=== PATIENT | female | born 1965 | race Caucasian/White ===

== ENCOUNTER → 2016-08-09 | Day surgery (SDC) | payer OTHER ==
[~2016-08-09] VITALS: Ht 160 cm; Wt 65.8 kg
[~2016-08-09] MED LIST: ADVAIR 250-501 EACH INH; PROAIR HFA8.5 GM INH; SYNTHROID112 MCG PO; XANAX0.5 M1 PO
--- NOTE | 2016-08-09 09:17 | Operative Report ---
Operative/Inv Procedure Report Surgery Date: 08/09/16 Name of Procedure: Right shoulder arthroscopic distal clavicle excision and subacromial decompression Pre-Operative Diagnosis: Right shoulder rotator cuff tendinitis and impingement syndrome Right shoulder acromioclavicular joint arthritis Post-Operative Diagnosis: Same Estimated Blood Loss: scant Surgeon/Compliance Officer: JERMAN TA,SUBHASH Cerda Anesthesia: general endotracheal tube IV Fluids: See anesthesia record Implants: None Drains: None Specimens: None Complications: None Condition: Stable Operative Indication: Patient is a pleasant 50-year-old female who was failed conservative treatment for her right shoulder pain and rotator cuff tendinitis and impingement. MRI was performed which showed tendinosis of the rotator cuff supraspinatus tendon however no full-thickness tear. She is indicated for surgical subacromial decompression and distal clavicle excision. A skilled set of hands was necessary provided by physician cardiovascular physician assistant Sathish Cerda weighted with camera positioning and instrumentation throughout the case. Operative/Procedure Note Note: Once informed consent was obtained and the correct limb was identified the patient brought to operative room placed on table supine position. After initiation of general endotracheal anesthesia patient placed in a beachchair position for right shoulder arthroscopy. Right upper extremity was prepped and draped in usual sterile fashion. To begin the procedure standard posterior arthroscopic portal was made and the arthroscope was introduced into the glenohumeral joint. Diagnostic arthroscopy was carried out. Subscapularis tendon was intact. Biceps tendon and biceps anchor were intact. The anterior and posterior labrum were intact no evidence of any tearing. The glenoid surface and the humeral head surface were devoid of any cartilaginous defects. There was a negative drive-through sign. There are no loose bodies in the inferior pouches. The camera was swung laterally and the supraspinatus and infraspinous tendons were inspected. There were no tears on the articular surface of the rotator cuff tendons. An anterior portal was made lateral to the coracoid process and minimal debridement and shaving was done with a shaving device for any frayed tissue. The biceps tendon was pulled into the joint with a probe and found that found to have no tearing. The scope was then brought into the subacromial space and a lateral portal was made under direct visualization. The electrocautery wand was then brought into the subacromial space and soft tissues removed from the acromial process and the acromioclavicular joint. Next acromioplasty was done with a 5.5 ultra cut device in the forward position. Once the acromioplasty had been performed attention was then turned to the acromial clavicular joint which had spurring and degenerative changes. Through the anterior portal the distal clavicle resection was done of 10 mm of bone. Once the acromioclavicular joint was adequately decompressed the acromial process and the distal clavicle were coplanar. Finally a bursectomy was done with a great white shaving device. The rotator cuff bursal surface was inspected there were no tears in the rotator cuff. The shoulder was taken through a range of motion and found to be stable. The shoulder was irrigated and the instruments are removed. The portals were closed with 3-0 nylon interrupted sutures. A sling was applied after sterile dressing and applied and the patient was awakened and taken recovery in stable condition.
== END ==
LOC: STS 01:01
DX: M75.41 Impingement syndrome of right shoulder (principal); M13.811 Other specified arthritis, right shoulder; E03.9 Hypothyroidism, unspecified; J45.909 Unspecified asthma, uncomplicated
CPT/HCPCS: J0131; J0171; J0690; J2250; J2405; J2795